=== PATIENT | male | born 1980 | race Caucasian/White ===

== ENCOUNTER 2020-04-23 00:02 | Emergency (ER) | payer MEDICAID ==
[~2020-04-23] VITALS: Ht 180.3 cm; Wt 73.5 kg
--- NOTE | 2020-04-23 00:05 | NUR ---
PT BIBSELF C/O OF RIGHT SIDED CHEST PAIN. PT AAOX4 BREATHING EVENLY AND UNLABORED. PT DENIES ANY TRAUMA. PT STATES "NOTHING MAKES IT BETTER, BUT MOVEMENT MAKES IT WORSE" PT SKIN WARM, DRY, AND INTACT. 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 GIVEN WARM BLANKET AND CALL LIGHT WITHIN REACH. WILL CONTINUE TO MONITOR.
--- NOTE | 2020-04-23 00:10 | NUR ---
LAB AT BEDSIDE
--- NOTE | 2020-04-23 00:15 | NUR ---
XRAY AT BEDSIDE
[2020-04-23] MEDS: IBUPROFEN 400 MG TABLET PO ONE (00:20)
[2020-04-23] MEDS ORDERED: IBUPROFEN 400 MG TABLET ONE (00:25)
[2020-04-23 00:35] LABS: BASOPHILS # (AUTO) 0.1 /CMM (0.0-0.2); BASOPHILS % (AUTO) 0.6 % (0.0-2.0); EOSINOPHILS % (AUTO) 3.1 % (0.0-6.0); HEMATOCRIT 46 % (39-51); HEMOGLOBIN 15.7 g/dL (13.5-17.5); LYMPHOCYTES # (AUTO) 3.6 /CMM (0.8-4.8); LYMPHOCYTES % (AUTO) 40.7 % (20.0-44.0); MEAN CORPUSCULAR HGB CONC 34 g/dl (31.0-36.0); MEAN CORPUSCULAR VOLUME 87 fL (80-96); MONOCYTES # (AUTO) 0.6 /CMM (0.1-1.30); MONOCYTES % (AUTO) 6.4 % (2.0-12.0); NEUTROPHILS # (AUTO) 4.4 /CMM (1.8-8.9); NEUTROPHILS % (AUTO) 49.2 % (43.0-81.0); PLATELET COUNT (AUTO) 186 /CMM (150-450); RED BLOOD CELL COUNT(AUTO) 5.29 MIL/uL (4.5-6.0); WHITE BLOOD COUNT (AUTO) 8.9 K/uL (4.3-11.0)
[2020-04-23 00:56] LABS: CALCIUM, SERUM 9.1 mg/dL (8.5-10.1); CARBON DIOXIDE 32 mmol/L (21-32); CHLORIDE 100 mmol/L (98-107); CREATININE 0.9 mg/dL (0.6-1.3); GLUCOSE 120 mg/dL (74-106); POTASSIUM 4.4 mmol/L (3.5-5.1); SODIUM SERUM 139 mmol/L (136-145); UREA NITROGEN, BLOOD 26 mg/dL (7-18)
[2020-04-23 01:19] LABS: D-DIMER 0.23 mg/L(FEU (0.17-0.50)
[2020-04-23] MEDS ORDERED: LORAZEPAM INJ 2 MG/ML VIAL IM ONE (01:30)
[2020-04-23] MEDS ORDERED: IBUP-1957 PO (01:51)
--- NOTE | 2020-04-23 01:57 | NUR ---
Patient discharged to home in stable condition. Written and verbal after care instructions given. Patient verbalizes understanding of instruction. Pt ambulatory with a steady gait.
[2020-04-23 02:05] VITALS: BP 111/57
== END 2020-04-23 01:57 | disposition home or self-care (01) ==
LOC: ER 00:07
DX: R07.89 Other chest pain (principal); Z79.899 Other long term (current) drug therapy
CPT/HCPCS: 36415; 71045-TC; 80048-TC; 84484-TC; 85025-TC; 85378-TC; 85730-TC